=== PATIENT | female | born 1985 | race Caucasian/White ===

== ENCOUNTER 2018-05-18 04:38 | Inpatient (IN) ==
[2018-05-18] MEDS ORDERED: fentaNYL Citrate Inj 100 MCG/2 ML Ampul IV.PUSH PRN ×2 (05:11)
[2018-05-18] MEDS ORDERED: Oxytocin 30 Units/500ml Premix 30 UNITS/500 ML BAG IV.SIG ONE (05:11)
[2018-05-18] MEDS ORDERED: Sodium Chlor 0.9% Inj 500 ML IV.SIG PRN (05:11)
[2018-05-18] MEDS ORDERED: Naloxone Inj 0.4 MG/ML Vial IV.PUSH PRN ×2 (05:11→16:28)
[2018-05-18] MEDS ORDERED: Sod Chloride 0.9% Inj 1,000 ML IV.CONT PRN (05:11)
[2018-05-18] MEDS ORDERED: Citric Acid/Sodium Citrate Liq 30 ML UDC PO SCH (05:15)
--- NOTE | 2018-05-18 05:18 | P.HPOB ---
History of Present Illness Primary Care Physician: No Primary Care Physician Dr. Felix Lobato Chief Complaint: Contractions water broke History of Present Illness: This patient is 32-year-old white female at 38 weeks and 6 days presents with gross rupture the membranes with meconium fluid Patient is bryon every 3 minutes, heart rate tracing is reactive Weeks Gestation:: 38 Para: 3 : 7 Total # of Miscarriage(s): 3 Review of Systems All other systems reviewed negative except as stated in HPI PMFSH - History History Provided By: Patient - Medical History Medical History: Medical History (Last Updated 05/16/18 @ 02:48 by Nhan Skelton MD) Hemoperitoneum due to rupture of tubal ectopic - Social History I have reviewed the patient's Social History: Yes - Tobacco History Smoking Status: Former smoker (07/17 PPD) - Alcohol History How Often Do You Have a Drink Containing Alcohol: Never - Substance Use History Substance History: Past History (daily MJ) - Travel History History of Recent Travel: No Recent Travel in the [place] Within the Last 8 Weeks: No Recent Travel Out of the Country Within the Last 8 Weeks: No Medications and Allergies Active Medications: Active Medications Citric Acid/Sodium Citrate (Sodium Citrate/Citric Acid Liq) 30 ml PO [facility] Stop: 05/22/18 05:14 Fentanyl Citrate (Fentanyl Inj) 50 mcg IV.PUSH Q1H PRN PRN Reason: Pain Scale 3 - 5 Fentanyl Citrate (Fentanyl Inj) 100 mcg IV.PUSH Q1H PRN PRN Reason: PAIN SCALE 6 TO 10 Lactated Ringer's (Lr 1000 Ml Inj) 1,000 mls @ 3,000 mls/hr IV.SIG UNSCH PRN PRN Reason: compromise or epidural Lidocaine HCl (Xylocaine 1% Inj) 10 ml INFILTRATN PRN PRN PRN Reason: For episiotomy repair Stop: 05/20/18 05:10 Allergies Allergy/AdvReac Type Severity Reaction Status Date / Time No Known Allergies Allergy Verified 05/18/18 05:07 Home Medications Medication Instructions Recorded Confirmed Type Vitamin 1 tab PO DAILY 05/16/18 05/18/18 History Exam Vital signs: Vital Signs 05/18/18 04:58 Temperature 98.8 F Pulse Rate 62 Blood Pressure 129/74 Intake & Output 11/04/18 11/04/18 11/05/18 06:59 18:59 06:59 Weight 93 kg Narrative: GENERAL: Well-nourished, well-developed patient. SKIN: Warm and dry. HEAD: Normocephalic and atraumatic. EYES: No scleral icterus. No injection or drainage. ENT: No nasal drainage noted. Mucous membranes pink. Airway patent. NECK: Supple, trachea midline. No JVD. CARDIOVASCULAR: Regular rate and rhythm without murmurs, gallops, or rubs. RESPIRATORY: Breath sounds equal bilaterally. No accessory muscle use. BREASTS: Bilateral exam showed no masses , no retractions, no nipple discharge. ABDOMEN/GI: Abdomen soft, non-tender, bowel sounds present, no rebound, no guarding Gravid to [38-] weeks size Fundal Height: [-38] GENITOURINARY: External Genitalia: intact and normal in appearance BUS glands: [-] Cervix: [post-] Dilatation: [3-] Effacement: [70-] Station: [-3] Presentation: [vtx-] Membranes: ruptured with meconium] Uterine Contractions: [q 3 min-] FHT's: Category: [1-] Baseline: [-133] Reactive: [R-] Variability: [mod-] Decels: [-0] EXTREMITIES: No cyanosis or edema. BACK: Nontender without obvious deformity. No CVA tenderness. NEUROLOGICAL: Awake and alert. Motor and sensory grossly within normal limits. Five out of 5 muscle strength in all muscle groups. Normal speech. Results - Labs Group B Strep: Negative Caprini VTE Risk Assessment Caprini VTE Risk Assessment: No/Low Risk (score <= 1) Caprini Risk Assessment Model: Point Value = 1 Point Value = 2 Point Value = 3 Point Value = 5 Age 41-60 Minor surgery BMI > 25 kg/m2 Swollen legs Varicose veins or History of unexplained or recurrent spontaneous Oral contraceptives or hormone replacement Sepsis (< 1 month) Serious lung disease, including pneumonia (< 1 month) Abnormal pulmonary function Acute myocardial infarction Congestive heart failure (< 1 month) History of inflammatory bowel disease Medical patient at bed rest Age 61-74 Arthroscopic surgery Major open surgery (> 45 min) Laparoscopic surgery (> 45 min) Malignancy Confined to bed (> 72 hours) Immobilizing plaster cast Central venous access Age >= 75 History of VTE Family history of VTE Factor V Leiden Prothrombin [id number] Lupus anticoagulant Anticardiolipin antibodies Elevated serum homocysteine Heparin-induced thrombocytopenia Other congenital or acquired thrombophilia Stroke (< 1 month) Elective arthroplasty Hip, pelvis, or leg fracture Acute spinal cord injury (< 1 month) Prophylaxis Regimen: Total Risk Factor Score Risk Level Prophylaxis Regimen 0-1 Low Early ambulation 2 Moderate Order ONE of the following: *Sequential Compression Device (SCD) *Heparin 5000 units SQ BID 3-4 Higher Order ONE of the following medications: *Heparin 5000 units SQ TID *Enoxaparin/Lovenox 40 mg SQ daily (WT < 150 kg, CrCl > 30 mL/min) *Enoxaparin/Lovenox 30 mg SQ daily (WT < 150 kg, CrCl > 10-29 mL/min) *Enoxaparin/Lovenox 30 mg SQ BID (WT < 150 kg, CrCl > 30 mL/min) AND/OR *Sequential Compression Device (SCD) 5 or more Highest Order ONE of the following medications: *Heparin 5000 units SQ TID (Preferred with Epidurals) *Enoxaparin/Lovenox 40 mg SQ daily (WT < 150 kg, CrCl > 30 mL/min) *Enoxaparin/Lovenox 30 mg SQ daily (WT < 150 kg, CrCl > 10-29 mL/min) *Enoxaparin/Lovenox 30 mg SQ BID (WT < 150 kg, CrCl > 30 mL/min) AND *Sequential Compression Device (SCD) Assessment and Plan - Diagnosis (1) 38 weeks gestation of Code(s): Z3A.38 - 38 weeks gestation of Status: Acute (2) Leakage, amniotic fluid Code(s): O42.90 - Premature rupture of membranes, unspecified as to length of time between rupture and onset of labor, unspecified weeks of gestation Status : Acute (3) Uterine contractions during Code(s): O62.2 - Other uterine inertia Status: Acute - Plan Plan for this patient is to be admitted to the hospital, labor managed appropriately, augmentation as needed, and anticipate vaginal delivery
[2018-05-18 06:33] LABS: Baso # (Auto) 0.1 th/mm3 (0.0-0.2); Baso % (Auto) 0.7 % (0.0-2.0); Eos # (Auto) 0.1 th/mm3 (0.0-0.4); Eos % (Auto) 1.5 % (0.0-4.0); Hematocrit 26.1 % (35.0-46.0); Hemoglobin 8.3 gm/dL (11.6-15.3); Lymph # (Auto) 1.8 th/mm3 (1.0-4.8); Lymph % (Auto) 19.3 % (9.0-44.0); Mean Corpuscular HGB Conc 31.7 % (32.0-36.0); Mean Corpuscular Volume 63.1 fL (80.0-100.0); Mono # (Auto) 0.5 th/mm3 (0.0-0.9); Mono % (Auto) 5.8 % (0.0-8.0); Neut # (Auto) 6.9 th/mm3 (1.8-7.7); Neut % (Auto) 72.7 % (16.0-70.0); Platelet Count 227 th/mm3 (150-450); Red Blood Count 4.14 mil/mm3 (4.00-5.30); Red Cell Distribution Width 15.4 % (11.6-17.2); White Blood Count 9.4 th/mm3 (4.0-11.0)
[2018-05-18 06:42] LABS: Bilirubin,Urine Negative (Negative); Clarity,Urine Hazy (Clear); Color,Urine Yellow (Yellw/Straw); Glucose,Urine (UA) Negative (Negative); Hyaline Casts,Urine 1 /lpf (0-3); Leukocyte Esterase,Urine Large (Negative); Mucus,Urine Few /lpf (Occasional); Nitrite,Urine Negative (Negative); Specific Gravity,Urine 1.014 (1.002-1.035); Squamous Epithelial Cell,Urine 1 /hpf (0-5)
[2018-05-18 06:44] LABS: Amphetamine Urine With Conf Neg (Neg); Benzodiazepine Urine With Conf Neg (Neg)
[2018-05-18] MEDS ORDERED: Oxytocin 30 Units/500ml Premix 30 UNITS/500 ML BAG IV.SIG PRN (07:28)
[2018-05-18] MEDS ORDERED: fentaNYL 2MCG-Bupiv 0.125% Epi 150 ML EPIDURAL ONE (08:31)
--- NOTE | 2018-05-18 09:47 | P.OBLABOR ---
Subjective Interval history: Patient doing well. Desires an epidural. Otherwise, no complaints. Objective Vital Signs: Vital Signs - 8 hr 05/18/18 04:58 05/18/18 05:18 05/18/18 05:30 Temperature 98.8 F Pulse Rate 62 74 Respiratory Rate 20 Blood Pressure 129/74 131/82 05/18/18 07:12 05/18/18 07:13 05/18/18 08:15 Temperature 98.7 F Pulse Rate 56 L 76 Respiratory Rate 16 16 Blood Pressure 120/66 132/68 05/18/18 08:45 05/18/18 09:15 Temperature Pulse Rate 63 66 Respiratory Rate Blood Pressure 126/75 126/87 Objective: Pelvic Exam: Cervix: posterior Dilatation: 3cm Effacement: 70% Station: -3 Presentation: vertex Membranes: ruptured Uterine Contractions: 3-4min FHT's: Category: 1 Baseline: 120s-130s Reactive: yes Variability: moderate Decels: none Assessment and Plan - Plan 32yo at 38/6 admitted in labor for anticipated vaginal delivery FHT Category 1, reassuring Cervix unchanged from 0500 is 3/70/-3 -on pitocin -desires epidural -Continue to monitor Discharge Planning: pending clinical course
[2018-05-18] MEDS ORDERED: fentaNYL Citrate Inj 100 MCG/2 ML Ampul EPIDURAL ONE (10:45)
[2018-05-18] MEDS ORDERED: fentaNYL 2MCG-Bupiv 0.125% Epi 150 ML EPIDURAL PRN (10:45)
[2018-05-18] MEDS ORDERED: Diphtheria/Tetanus/Pertussis Vaccine Inj 0.5 ML Syringe IM ONE (16:00)
[2018-05-18] MEDS ORDERED: Measles/Mumps/Rubella Vaccine Inj 0.5 ML Vial SQ ONE (16:00)
--- NOTE | 2018-05-18 16:25 | P.OBDELI ---
Weeks Gestation: 38 Anesthesia: Epidural Episiotomy: none Vaginal Delivery: Normal Presentation: Occiput anterior Nuchal Cord: None Delayed Cord Clamping (45 sec): Yes Placenta: Spontaneous delivery (Cord blood not obtained) Estimated blood loss (mL): 150 : Male Additional Information: SDW: Dr. Jv Soni
[2018-05-18] MEDS ORDERED: Benzocaine 20% Top Spray 60 ML Can TOPICAL PRN (16:28)
[2018-05-18] MEDS ORDERED: Acetaminophen 325 MG Tablet PO PRN (16:28)
[2018-05-18] MEDS ORDERED: Oxytocin 30 Units/500ml Premix 30 UNITS/500 ML BAG IV.CONT PRN (16:28)
[2018-05-18] MEDS ORDERED: Witch Hazel 50%/Glyderin 12.5% 40 Pad Jar RECTAL PRN (16:28)
[2018-05-18] MEDS ORDERED: Bisacodyl 10 MG Supp RECTAL PRN (16:28)
[2018-05-18] MEDS ORDERED: Zolpidem Tartrate 5 MG Tablet PO PRN (16:28)
[2018-05-18] MEDS: Senna/Docusate Sodium 8.6/50 MG Tablet PO SCH (21:00)
--- NOTE | 2018-05-19 08:18 | P.PNOB ---
Subjective Post day: 1 Interval history: day # 1. AFVSS overnight. Pain well-controlled. Decreased lochia. Denies dysuria. No breast tenderness. She is feeding the baby via bottle. Appetite good. No nausea or vomiting. + flatus. + bowel movement. Ambulating well. Denies calf pain, shortness of breath, or cough. Otherwise, she is doing well this morning and has no other complaints. Objective Vital Signs/I&O: Vital Signs 05/18/18 08:45 05/18/18 09:15 05/18/18 09:45 Temperature Pulse Rate 63 66 59 L Respiratory Rate Blood Pressure 126/75 126/87 133/68 05/18/18 09:55 05/18/18 10:05 05/18/18 10:40 Temperature Pulse Rate 74 62 68 Respiratory Rate Blood Pressure 141/74 H 132/69 127/71 05/18/18 10:41 05/18/18 10:45 05/18/18 10:55 Temperature 98.7 F Pulse Rate 65 56 L Respiratory Rate 16 Blood Pressure 131/69 114/53 L 05/18/18 11:05 05/18/18 12:31 05/18/18 12:59 Temperature 99.2 F Pulse Rate 62 57 L Respiratory Rate 18 Blood Pressure 129/79 127/80 05/18/18 13:01 05/18/18 13:35 05/18/18 14:01 Temperature Pulse Rate 64 71 83 Respiratory Rate Blood Pressure 144/71 H 113/61 114/56 L 05/18/18 14:15 05/18/18 15:01 05/18/18 15:31 Temperature 99.2 F Pulse Rate 60 81 Respiratory Rate Blood Pressure 122/71 132/73 05/18/18 15:47 05/18/18 15:55 05/18/18 16:10 Temperature 98.2 F Pulse Rate 87 82 Respiratory Rate 18 16 Blood Pressure 137/85 134/65 05/18/18 16:16 05/18/18 16:31 05/18/18 16:46 Temperature Pulse Rate 98 H 65 60 Respiratory Rate Blood Pressure 134/72 131/75 131/61 05/18/18 17:31 05/18/18 18:01 05/18/18 18:32 Temperature 99.4 F Pulse Rate 60 81 66 Respiratory Rate 20 Blood Pressure 129/57 L 121/67 125/77 11/05/18 20:00 Temperature 98.3 F Pulse Rate 70 Respiratory Rate 18 Blood Pressure 126/78 Intake & Output 05/18/18 05/19/18 05/19/18 18:59 06:59 18:59 Intake Total 1000 / 1000 Balance 1000 / 1000 Intake: IV 1000 / 1000 LR 1000 mL Inj 1,000 ML @ 125 1000 / 1000 mls/hr IV.CONT .Q8H [facility] Rx#: [id number] Result Diagrams: 05/18/18 05:50 Objective Remarks: GENERAL: Well-nourished, well-developed patient. CARDIOVASCULAR: Regular rate and rhythm without murmurs, gallops, or rubs. RESPIRATORY: Breath sounds equal bilaterally. No accessory muscle use. ABDOMEN/GI: Abdomen soft, non-tender. Fundus: Firm, non-tender at umbilicus. GENITOURINARY: Light to moderate bleeding. EXTREMITIES: No cyanosis or edema, non-tender, without signs of DVT. Medications and IVs: Active Medications Acetaminophen (Tylenol) 650 mg PO Q4H PRN PRN Reason: PAIN SCALE 1 TO 2 Al Hydroxide/Mg Hydroxide (Milk Of Magnesia Liq) 30 ml PO Q12H PRN PRN Reason: Mild Constipation Benzocaine (Americaine 20% [place]) 1 spray TOPICAL Q4H PRN PRN Reason: For Perineum Discomfort Bisacodyl (Dulcolax Supp) 10 mg RECTAL DAILY PRN PRN Reason: SEVERE CONSITIPATION Ephedrine Sulfate (Ephedrine/Ns Syringe) 10 mg IV.PUSH UNSCH PRN PRN Reason: SEE LABEL COMMENTS Stop: 05/19/18 10:45 Oxytocin (Pitocin 30 Units/Ns 500 Ml Premix) 30 units in 500 mls @ 1 mls/hr IV.SIG TITRATE PRN; Protocol PRN Reason: For induction of labor Last Admin: 05/18/18 07:59 Dose: 1 milliunit/min, 1 mls/hr Fentanyl/Bupivacaine/Sodium Chlor (Fentanyl 2 Mcg-Bupiv 0.125% Epi) 150 mls @ 12 mls/hr EPIDURAL PRN PRN PRN Reason: for Labor Pain Last Admin: 05/18/18 09:55 Dose: 12 mls/hr Oxytocin (Pitocin 30 Units/Ns 500 Ml Premix) 30 units in 500 mls @ 100 mls/hr IV.CONT UNSCH PRN PRN Reason: Heavy bleeding Ibuprofen (Motrin) 800 mg PO Q8H PRN PRN Reason: For Cramping Last Admin: 05/19/18 03:44 Dose: 800 mg Influenza Virus Vaccine (Fluarix (Quad) Vaccine Inj) 0.5 ml IM .ONCE ONE Stop: 05/19/18 09:01 Lactulose (Lactulose Liq) 30 ml PO DAILY PRN PRN Reason: SEVERE CONSITIPATION Miscellaneous Information (Misc Information) 1 each OTHER UNSCH PRN PRN Reason: SEE LABEL COMMENTS Stop: 05/19/18 10:45 Naloxone HCl (Narcan Inj) 0.1 mg IV.PUSH Q2M PRN PRN Reason: for opiate reversal Ondansetron HCl (Zofran Odt) 4 mg PO Q6H PRN PRN Reason: NAUSEA OR VOMITING Senna/Docusate Sodium (Joyce-Colace) 1 tab PO BID [facility] Last Admin: 05/18/18 21:00 Dose: Not Given Sennosides (Senokot) 17.2 mg PO Q12H PRN PRN Reason: Moderate Constipation Sodium Chloride (Ns Flush) 2 ml IV.FLUSH BID [facility] Last Admin: 05/19/18 01:47 Dose: Not Given Sodium Chloride (Ns Flush) 2 ml IV.FLUSH PRN PRN PRN Reason: FLUSH AFTER USING IV ACCESS Witch [place]/Glycerin (Tucks Pads) 1 applicatio RECTAL QID PRN PRN Reason: HEMORRHOIDS Zolpidem Tartrate (Ambien) 5 mg PO HS PRN PRN Reason: SLEEP Assessment and Plan - Plan 32 y/o who is PPD# 1 s/p . -Continue routine care. -Percocet and Motrin PRN pain. -Encouraged OOB. Advised pelvic rest for 6 wks. -Will need a f/u appt. within 6 wks. -Re: ctrl, she would like a tubal ligation. -D/c likely today. wdw Dr. Hi
[2018-05-19] MEDS ORDERED: Influenza (Quadrivalent) Vaccine 0.5 ML Syringe IM ONE (09:00)
[2018-05-19] MEDS: Senna/Docusate Sodium 8.6/50 MG Tablet PO SCH ×2 (14:51→21:13)
[2018-05-20 08:05] VITALS: BP 113/69; PULSE 67; RESP 20; TEMP 97.9
[2018-05-20] MEDS: Senna/Docusate Sodium 8.6/50 MG Tablet PO SCH (09:58)
--- NOTE | 2018-05-20 10:10 | P.PNOB ---
Subjective Post day: 2 Interval history: day # 2. AFVSS overnight. Pain well-controlled. Decreased lochia. Denies dysuria. No breast tenderness. She is feeding the baby via bottle. Appetite good. No nausea or vomiting. + flatus. + bowel movement. Ambulating well. Denies calf pain, shortness of breath, or cough. Otherwise, she is doing well this morning and has no other complaints. Objective Vital Signs/I&O: Vital Signs 05/19/18 15:00 05/19/18 20:00 05/20/18 08:00 Temperature 98.1 F 98.6 F 97.9 F Pulse Rate 59 L 77 67 Respiratory Rate 18 18 20 Blood Pressure 121/78 122/80 113/69 Result Diagrams: 05/18/18 05:50 Objective Remarks: GENERAL: Well-nourished, well-developed patient. CARDIOVASCULAR: Regular rate and rhythm without murmurs, gallops, or rubs. RESPIRATORY: Breath sounds equal bilaterally. No accessory muscle use. ABDOMEN/GI: Abdomen soft, non-tender. Fundus: Firm, non-tender at umbilicus. GENITOURINARY: Light to moderate bleeding. EXTREMITIES: No cyanosis or edema, non-tender, without signs of DVT. Medications and IVs: Active Medications Acetaminophen (Tylenol) 650 mg PO Q4H PRN PRN Reason: PAIN SCALE 1 TO 2 Al Hydroxide/Mg Hydroxide (Milk Of Magnesia Liq) 30 ml PO Q12H PRN PRN Reason: Mild Constipation Benzocaine (Americaine 20% Top [place]) 1 spray TOPICAL Q4H PRN PRN Reason: For Perineum Discomfort Bisacodyl (Dulcolax Supp) 10 mg RECTAL DAILY PRN PRN Reason: SEVERE CONSITIPATION Oxytocin (Pitocin 30 Units/Ns 500 Ml Premix) 30 units in 500 mls @ 1 mls/hr IV.SIG TITRATE PRN; Protocol PRN Reason: For induction of labor Last Admin: 05/18/18 07:59 Dose: 1 milliunit/min, 1 mls/hr Fentanyl/Bupivacaine/Sodium Chlor (Fentanyl 2 Mcg-Bupiv 0.125% Epi) 150 mls @ 12 mls/hr EPIDURAL PRN PRN PRN Reason: for Labor Pain Last Admin: 05/18/18 09:55 Dose: 12 mls/hr Oxytocin (Pitocin 30 Units/Ns 500 Ml Premix) 30 units in 500 mls @ 100 mls/hr IV.CONT UNSCH PRN PRN Reason: Heavy bleeding Ibuprofen (Motrin) 800 mg PO Q8H PRN PRN Reason: For Cramping Last Admin: 05/19/18 03:44 Dose: 800 mg Lactulose (Lactulose Liq) 30 ml PO DAILY PRN PRN Reason: SEVERE CONSITIPATION Naloxone HCl (Narcan Inj) 0.1 mg IV.PUSH Q2M PRN PRN Reason: for opiate reversal Ondansetron HCl (Zofran Odt) 4 mg PO Q6H PRN PRN Reason: NAUSEA OR VOMITING Senna/Docusate Sodium (Joyce-Colace) 1 tab PO BID [facility] Last Admin: 05/20/18 09:58 Dose: Not Given Sennosides (Senokot) 17.2 mg PO Q12H PRN PRN Reason: Moderate Constipation Sodium Chloride (Ns Flush) 2 ml IV.FLUSH BID [facility] Last Admin: 05/20/18 09:58 Dose: Not Given Sodium Chloride (Ns Flush) 2 ml IV.FLUSH PRN PRN PRN Reason: FLUSH AFTER USING IV ACCESS Witch [place]/Glycerin (Tucks Pads) 1 applicatio RECTAL QID PRN PRN Reason: HEMORRHOIDS Zolpidem Tartrate (Ambien) 5 mg PO HS PRN PRN Reason: SLEEP Assessment and Plan - Plan 32 y/o who is PPD# 2 s/p . -Continue routine care. -Percocet and Motrin PRN pain. -Encouraged OOB. Advised pelvic rest for 6 wks. -Will need a f/u appt. within 6 wks. -Re: ctrl, she would like a tubal ligation. -D/c today. wdw Dr. Win
== END 2018-05-20 13:44 | disposition home or self-care (01) ==
LOC: HOBED 04:38 → H2E 05:11 → H1EA 18:13
PROVIDERS: ADMIT Obstetrics & Gynecology Maternal & Fetal Medicine; ATTEND Obstetrics & Gynecology Maternal & Fetal Medicine